=== PATIENT | female | born 2000 | race Caucasian/White ===

== ENCOUNTER 2024-06-06 16:56 | Inpatient (IN) | payer MEDICAID ==
[~2024-06-06] VITALS: Ht 160 cm; Wt 108.4 kg
[2024-06-06 18:23] LABS: HEMATOCRIT. 37.8 % (36.0-48.0); HEMOGLOBIN. 12.6 g/dL (12.0-16.0); MEAN CORPUSCULAR HEMOGLOBIN 27.5 pg (28.0-32.0); MEAN CORPUSCULAR HGB CONC 33.4 g/dL (31.0-37.0); MEAN CORPUSCULAR VOLUME 82.5 fL (81.0-99.0); MEAN PLATELET VOLUME 8.5 fl (7.4-10.4); PLATELET 269 x1000/uL (130-400); RED BLOOD CELL COUNT 4.58 mill/uL (4.2-5.4); RED CELL DISTRIBUTION WIDTH 13.6 % (11.6-14.6); WHITE BLOOD COUNT 31.5 x1000/uL (4.5-11.0)
[2024-06-06 18:35] LABS: DIFFERENTIAL COMMENT 1
[2024-06-06 18:37] LABS: CHLORIDE 104 mEq/L (98-107); POTASSIUM 3.3 mEq/L (3.5-5.1); SODIUM 135 mEq/L (136-145)
[2024-06-06 18:38] LABS: CARBON DIOXIDE 22 mEq/L (21-32); PROTHROMBIN TIME 10.9 sec (9.6-11.0)
[2024-06-06 18:39] LABS: CALCIUM 10.5 mg/dL (8.7-10.4)
[2024-06-06 18:43] LABS: CREATININE 0.7 mg/dL (0.6-1.0); GLUCOSE 147 mg/dL (70-105); UREA NITROGEN BLOOD 7 mg/dL (9-23)
[2024-06-06 19:00] LABS: B-HCG QUANTITATIVE 7933 mIU/mL (<6)
[2024-06-06 19:09] LABS: ALANINE AMINOTRANSFERASE 45 IU/L (10-49); ALBUMIN 4.3 g/dL (3.2-4.8); ASPARTATE AMINOTRANSFERASE 31 IU/L (<34)
[2024-06-06 19:10] LABS: BILIRUBIN DIRECT 0.5 mg/dL (<=3.0); BILIRUBIN TOTAL 1.8 mg/dL (0.1-1.0); PROTEIN TOTAL 7.4 g/dL (6.0-8.3)
[2024-06-06 19:57] LABS: PLATELET ESTIMATE NORMAL
[2024-06-06] MEDS: SODIUM CHLORIDE 0.9% 1,000 ML IV ONE (20:12)
[2024-06-06] MEDS: AMPICILLIN 2,000 MG in SODIUM CHLORIDE 0.9% 100 ML IV STA (21:01)
[2024-06-06] MEDS: GENTAMICIN 120MG PREMIX 100 ML IV SCH (21:15)
[2024-06-06 21:51] LABS: CLARITY URINE CLOUDY (CLEAR); COLOR URINE RED (YELLOW); GLUCOSE URINE NEGATIVE (NEGATIVE); KETONES URINE 3+ (NEGATIVE); LEUKOCYTE ESTERASE URINE 2+ (NEGATIVE); NITRITE URINE NEGATIVE (NEGATIVE); OCCULT BLOOD URINE 3+ (NEGATIVE); PROTEIN URINE 2+ (NEGATIVE); SPECIFIC GRAVITY URINE 1.011 (1.005-1.030); UROBILINOGEN URINE 0.2 E.U./dL (0.2-1.0)
[2024-06-06] MEDS: SODIUM CHLORIDE 0.9% (SEPSIS BOLUS) IV ONE (21:54)
[2024-06-06 22:27] LABS: BACTERIA URINE TRACE; RBC URINE TNTC /hpf (0-2); SQUAMOUS EPITHELIAL CELL URINE FEW /lpf (RARE/1+)
[2024-06-06] MEDS ORDERED: FOLI0.4T6 PO (23:31)
[2024-06-06] MEDS ORDERED: FERR236T3 PO (23:31)
[2024-06-06] MEDS ORDERED: PNV1TABL76 MT (23:31)
[2024-06-06 23:36] VITALS: BP 106/67; PULSE 89; RESP 18; TEMP 36.1
[2024-06-07] VITALS: BP 106/67; PULSE 89; RESP 18; TEMP 36.5; O2SAT 99
[2024-06-07] MEDS ORDERED: CEFEPIME 1GM/50ML 50 ML IV SCH
[2024-06-07] MEDS ORDERED: METRONIDAZOLE 500 MG PREMIX 100 ML IV NR (01:00)
[2024-06-07] MEDS: CEFEPIME 2GM/50ML DUPLEX 50 ML IV SCH (01:22)
[2024-06-07] MEDS: METRONIDAZOLE 500 MG PREMIX 100 ML IV SCH (02:05)
[2024-06-07 04:00] VITALS: BP 97/61; PULSE 89; RESP 18; TEMP 36.6; O2SAT 98
[2024-06-07 06:58] LABS: CHLORIDE 109 mEq/L (98-107); POTASSIUM 3.4 mEq/L (3.5-5.1); SODIUM 139 mEq/L (136-145)
[2024-06-07 06:59] LABS: CALCIUM 8.6 mg/dL (8.7-10.4); CARBON DIOXIDE 21 mEq/L (21-32)
[2024-06-07 07:02] LABS: BASOPHILS % 0.2 % (0.0-2.0); EOSINOPHILS % 0.1 % (0.0-5.0); HEMATOCRIT. 32.7 % (36.0-48.0); HEMOGLOBIN. 10.8 g/dL (12.0-16.0); LYMPHOCYTES % 13.6 % (20.0-50.0); MEAN CORPUSCULAR HEMOGLOBIN 27.8 pg (28.0-32.0); MEAN CORPUSCULAR HGB CONC 33.2 g/dL (31.0-37.0); MEAN CORPUSCULAR VOLUME 83.5 fL (81.0-99.0); MEAN PLATELET VOLUME 8.4 fl (7.4-10.4); MONOCYTES % 6.8 % (2.0-8.0); NEUTROPHILS % 79.3 % (40.0-76.0); PLATELET 218 x1000/uL (130-400); RED BLOOD CELL COUNT 3.91 mill/uL (4.2-5.4); RED CELL DISTRIBUTION WIDTH 13.4 % (11.6-14.6); WHITE BLOOD COUNT 24.1 x1000/uL (4.5-11.0)
[2024-06-07 07:04] LABS: GLUCOSE 74 mg/dL (70-105); UREA NITROGEN BLOOD < 5 mg/dL (9-23)
[2024-06-07 07:09] LABS: HEPATITIS B SURFACE ANTIGEN NEGATIVE (Negative)
[2024-06-07 07:30] LABS: HEPATITIS C AB NON REACTIVE (Neg) (Negative)
[2024-06-07 08:00] VITALS: BP 94/66; PULSE 88; RESP 17; TEMP 37; O2SAT 98
[2024-06-07 08:16] LABS: CREATININE 0.4 mg/dL (0.6-1.0)
[2024-06-07 11:57] VITALS: BP 99/59; PULSE 90; RESP 18; TEMP 37.3; O2SAT 100
[2024-06-07 16:00] VITALS: BP 100/48; PULSE 85; RESP 20; TEMP 37.2; O2SAT 97
[2024-06-07] MEDS ORDERED: ONDANSETRON HCL 4MG/2ML INJ IV PRN (18:00)
[2024-06-07] MEDS ORDERED: ACETAMINOPHEN 325MG TABLET PO PRN ×2 (18:00)
[2024-06-07] MEDS ORDERED: FERR-63 PO (18:01)
[2024-06-07] MEDS ORDERED: FOLI-43 PO (18:01)
[2024-06-07] MEDS: POTASSIUM CHLORIDE 20MEQ TABLET SR PO NR (18:10)
[2024-06-07 20:00] VITALS: BP 95/64; PULSE 85; RESP 18; TEMP 36.6; O2SAT 98
[2024-06-08] VITALS: BP 102/68; PULSE 88; RESP 18; TEMP 36.5; O2SAT 100
[2024-06-08 04:00] VITALS: BP 100/66; PULSE 86; RESP 18; TEMP 36.7; O2SAT 98
[2024-06-08 08:00] VITALS: BP 115/74; PULSE 87; RESP 18; TEMP 35.9; O2SAT 96
[2024-06-08 08:08] LABS: BASOPHILS % 0.5 % (0.0-2.0); EOSINOPHILS % 1.8 % (0.0-5.0); HEMATOCRIT. 33.4 % (36.0-48.0); HEMOGLOBIN. 11.1 g/dL (12.0-16.0); LYMPHOCYTES % 17.2 % (20.0-50.0); MEAN CORPUSCULAR HEMOGLOBIN 27.5 pg (28.0-32.0); MEAN CORPUSCULAR HGB CONC 33.1 g/dL (31.0-37.0); MEAN CORPUSCULAR VOLUME 82.9 fL (81.0-99.0); MEAN PLATELET VOLUME 8.5 fl (7.4-10.4); MONOCYTES % 4.9 % (2.0-8.0); NEUTROPHILS % 75.6 % (40.0-76.0); PLATELET 249 x1000/uL (130-400); RED BLOOD CELL COUNT 4.03 mill/uL (4.2-5.4); RED CELL DISTRIBUTION WIDTH 13.9 % (11.6-14.6); WHITE BLOOD COUNT 13.5 x1000/uL (4.5-11.0)
[2024-06-08 08:28] LABS: CHLORIDE 109 mEq/L (98-107); POTASSIUM 3.8 mEq/L (3.5-5.1); SODIUM 142 mEq/L (136-145)
[2024-06-08 08:29] LABS: CALCIUM 8.8 mg/dL (8.7-10.4); CARBON DIOXIDE 25 mEq/L (21-32)
[2024-06-08 08:34] LABS: CREATININE 0.5 mg/dL (0.6-1.0)
[2024-06-08 08:35] LABS: GLUCOSE 77 mg/dL (70-105); UREA NITROGEN BLOOD 7 mg/dL (9-23)
[2024-06-08] MEDS: FERROUS SULFATE 325MG TABLET PO SCH (09:04)
[2024-06-08 12:00] VITALS: BP 103/68; PULSE 89; RESP 20; TEMP 36.8; O2SAT 98
[2024-06-08 16:00] VITALS: BP 99/73; PULSE 80; RESP 20; TEMP 36.7; O2SAT 99
[2024-06-08 20:00] VITALS: BP 105/57; PULSE 86; RESP 19; TEMP 36.4; O2SAT 97
[2024-06-09] VITALS: BP 111/69; PULSE 79; RESP 20; TEMP 36.6; O2SAT 96
[2024-06-09 00:07] LABS: INFLUENZA TYPE A Presumptive Negative (Pres. Neg.)
[2024-06-09 00:08] LABS: INFLUENZA TYPE B Presumptive Negative (Pres. Neg.)
[2024-06-09 04:00] VITALS: BP 104/54; PULSE 82; RESP 20; TEMP 36.6
[2024-06-09 07:46] VITALS: BP 102/63; PULSE 69; TEMP 36.3
[2024-06-09] MEDS ORDERED: CEPH500C2 MT (10:31)
[2024-06-09 12:00] VITALS: BP 109/64; PULSE 70; TEMP 36.7
[2024-06-09 13:23] VITALS: BP 102/63; PULSE 69; TEMP 97.6; O2SAT 99
== END 2024-06-09 13:30 | disposition home or self-care (01) | DRG 564 ==
LOC: ER 17:19 → 7WST 21:30
PROVIDERS: ADMIT Internal Medicine; ATTEND Internal Medicine
DX: O03.87 Sepsis following complete or unspecified spontaneous abortion (principal); A41.9 Sepsis, unspecified organism; O26.612 Liver and biliary tract disorders in pregnancy, second trimester; N39.0 Urinary tract infection, site not specified; O03.89 Complete or unspecified spontaneous abortion with other complications; O03.83 Metabolic disorder following complete or unspecified spontaneous abortion; O99.012 Anemia complicating pregnancy, second trimester; O03.88 Urinary tract infection following complete or unspecified spontaneous abortion; E87.6 Hypokalemia; Z3A.19 19 weeks gestation of pregnancy
CPT/HCPCS: 36415; 76700; 76805; 76857; 80048; 80076; 81003; 83605; 84145; 84702; 85025; 86705; 86850; 86900; 87340; 87426; 87804; 93005; 99291; A4606; J0290; J0692; J1580; J3490; J7030; J7050